=== PATIENT | male | born 1960 | race Two or more races ===

== ENCOUNTER 2023-12-20 17:58 | Emergency (ER) | payer BC, SELFPAY ==
[2023-12-20 17:59] VITALS: BP 179/108
[2023-12-20 18:27] LABS: % Basophils 0.4 % (0-2); % Eosinophils 3.2 % (0-6); % Immature Granulocytes 0.3 % (0-0.5); % Monocytes 6.2 % (1.7-9.3); % Neutrophils 61.9 % (42.2-75.2); Absolute Eosinophils 0.3 10^3/uL (0-0.7); Absolute Lymphocytes 2.7 10^3/uL (1.2-3.4); Absolute Monocytes 0.6 10^3/uL (0.1-0.6); Absolute Neutrophils 5.9 10^3/uL (1.4-6.5); Hematocrit 35.9 % (39.0-52.0); Hemoglobin 12.9 g/dL (13.0-18.0); Mean Corp Hgb Conc. 35.9 g/dL (33.0-37.0); Mean Corpuscular Hgb 30.3 pg (27.0-31.0); Mean Corpuscular Volume 84.3 fL (80.0-94.0); Mean Platelet Volume 9.7 fL (7.4-10.4); Nucleated Red Blood Cells % 0 % (-); Platelet Count 316 10^3/uL (130-400); Red Blood Cell Count 4.26 10^6/uL (4.70-6.10); Red Cell Dist. Width 14.3 % (11.5-14.5); White Blood Cell Count 9.5 10^3/uL (4.8-10.8)
[2023-12-20 18:41] LABS: ALT (SGPT) 22 U/L (0-50); AST (SGOT) 22 U/L (17-59); Albumin 4.1 g/dl (3.5-5.0); Alkaline Phosphatase 100 U/L (38-126); Blood Urea Nitrogen 25 mg/dl (9-20); Calcium 10.2 mg/dl (8.4-10.2); Carbon Dioxide 26 mmol/L (22-30); Chloride 100 mmol/L (98-107); Glucose 135 mg/dl (70-99); Potassium 2.6 mmol/L (3.5-5.1); Sodium 138 mmol/L (135-145); Total Bilirubin 0.5 mg/dl (0.2-1.3); Total Protein 6.8 g/dl (6.3-8.2); eGFR 56.83
[2023-12-20 19:02] VITALS: BP 173/99
--- NOTE | 2023-12-20 19:18 | ED.GENMED ---
History of Present Illness
General
Chief Complaint: Blood Pressure Problem
Source: patient, records and spouse
Time Seen by Provider: 12/20/23 18:59
Travel History
Have you had any contact with someone who has COVID-19?: No
Do you have any symptoms of coronavirus? Fever > 100 degrees, chills, cough, shortness of breath, sore throat, loss of taste or smell, muscle aches, or headache?: No
History of Present Illness
History of Present Illness:
63-year-old male presents to the emergency room complaining of high blood pressure, headache. Patient is particularly concerned because he had a fall with a bleed in September. He was transferred from here to [facility] and then ultimately
went to rehab at [facility]. [facility] [place] he was having issues with hypertension. His medications were adjusted. After discharge home the patient initially was having issues with low blood pressure. Some of his medications were further adjusted.
Patient's checks his blood pressure religiously. Today he is blood pressure is high. Patient does have a headache. He states he does not typically get headaches. No focal weakness numbness or tingling.
Past History
Past History
ED Past Medical History: HTN, Hypercholesterolemia and Psychiatric
ED Past Surgical History: Other
Social History
Tobacco: Non-smoker
Alcohol: None
Drug: None
Personal:
Living: with family
Employment: Employed
Phy Exam
Physical Exam
Physical Exam:
General: Awake, Alert, Oriented X3. No acute distress.
Vitals: unremarkable
Head: Atraumatic
Eyes: Pupils equal, EOMI
Throat: Airway intact, no exudates
Neck: Trachea midline
Lungs: Clear and equal b/l
Heart: Regular rate, no murmurs
Abd: Soft, Nontender, No pulsatile mass
Neuro: Cranial nerves intact, muscle strength equal bilaterally, cerebellar exam normal
Skin: Warm, dry, no rash
Extremities: pulses equal b/l, no edema
Course
Orders/Labs/Results
Orders:
Orders
12/20/23 18:01
Electrocardiogram (*1) Urgent
Reason for Study: Hypertension, Benign
EKG- Treatment ONCE
12/20/23 18:02
CT Head W/o Iv Contrast Urgent
Comment:
Reason For Exam: headache
12/20/23 18:05
Complete Blood Count/With Diff Urgent
Comprehensive Metabolic Panel Urgent
12/20/23 19:30
MRI Brain [MR Brain W/o & With Contrast] Urgent
Comment:
Reason For Exam: eval abnormal finding on CT, headache
OK for patient to be off Cardiac Monitoring for MRI: Yes
Recent pill cam endoscopy?: No
12/20/23 20:32
Oxycodone [Roxicodone] 5 mg PO NOW STA
12/20/23 20:36
Lorazepam [Ativan] 1 mg IV NOW STA
12/20/23 21:36
Potassium Chloride 10% Elixir [KCl Elixir] 80 meq PO NOW STA
Abnormal Lab Results
12/20/23
18:05
RBC 4.26 L 10^6/uL
(4.70-6.10)
Hgb 12.9 L g/dL
(13.0-18.0)
Hct 35.9 L %
(39.0-52.0)
Potassium 2.6 L* mmol/L
(3.5-5.1)
BUN 25 H mg/dl
(9-20)
Creatinine 1.4 H mg/dL
(0.7-1.3)
Glucose 135 H mg/dl
(70-99)
12/20/23 18:05
12/20/23 18:05
Vital Signs
Initial and Last Documented VS:
Initial Vital Signs
Temp Pulse Resp BP Pulse Ox
98.6 F 89 18 179/108 98
12/20/23 17:59 12/20/23 17:59 12/20/23 17:59 12/20/23 17:59 12/20/23 17:59
Last Documented Vital Signs
Temp Pulse Resp BP Pulse Ox
98.6 F 79 18 138/100 94
12/20/23 17:59 12/20/23 22:37 12/20/23 22:37 12/20/23 22:37 12/20/23 22:30
MDM/Problems Addressed
Differential Diagnosis Includes:
Uncontrolled hypertension, recurrence of subdural or subarachnoid hemorrhage, electrode abnormality
MDM/Problems Addressed:
Patient presents with high blood pressure at home. On arrival here his blood pressure is 179 and during his stay here has improved to [address] was obtained given his headache and history of bleed. This shows findings which are likely
related to his old bleed but radiology recommended an MRI to exclude any new bleeding. MRI was performed and it is in fact negative for any acute abnormality. Patient was found to have hypokalemia. He has been taking Lokelma. Apparently during
his hospitalization for his recent bleed he did have hyperkalemia. Patient instructed to stop taking Lokelma. 80 mEq of KCl elixir given here. I sent a prescription for 20 mill equivalent replacement a day as well as instructing the patient to
normalize his diet which has been a low potassium diet recently. Recheck potassium on Saturday. Patient stable for discharge home however as he has normal intervals on his EKG.
*Radiology
Radiology exam reviewed: radiology read reviewed
*Pulse Oximetry
Patient hypoxic: no
*EKG
Interpreted by ED Provider?: Yes
Interpretation: normal
Heart Rate: 84
Rate: normal
Rhythm: sinus
[place]: normal axis
Interval: normal interval
QRS Pattern: normal QRS
Ischemia: no ischemia
*Keyliner Interpretation
Rate: normal
Interpretation: normal
Rhythm: sinus
*Critical Care Note
Total Time (30-74mins, 75-104mins- exclusive of procedures): Not Applicable
ED Attending Note
-
Portions of this chart may have been created with voice recognition software.� Occasional wrong word or��sound alike� substitutions may have occurred due to the inherent limitations of voice recognition software.
Discharge Plan
Departure
Patient Disposition: Home (Routine Discharge)
Date of Disposition: 12/20/23
Time of Disposition: 22:55
Patient with high blood pressure during this ER visit?: Yes
Condition: Good
Discharge Problem:
Hypertension, Hypokalemia
Instructions: Hypokalemia, High Blood Pressure (DC)
Prescriptions:
New
potassium chloride 20 mEq tablet,ER particles/crystals
20 meq PO ONCE Qty: 14 0RF
No Action
carvedilol 6.25 mg tablet
6.25 mg PO BID
chlorthalidone 25 mg tablet
25 mg PO DAILY
omeprazole 40 mg capsule,delayed release(DR/EC)
40 mg PO DAILY
amantadine HCl 100 mg capsule
100 mg PO BID@0800,1400
montelukast 10 mg tablet
10 mg PO DAILY
gabapentin 100 mg capsule
100 mg PO HS
albuterol sulfate 90 mcg/actuation HFA aerosol inhaler
2 puff INHALATION R Q6HPRN PRN (Reason: sob/wheezing)
oxycodone 5 mg tablet
5 mg PO Q6HPRN PRN (Reason: moderate to severe pain)
Patient Comments:
12/20/2023: last filled 11/29/23, 60 tabs for 15 days from [facility]
rosuvastatin 10 mg tablet
10 mg PO QPM
metoprolol tartrate 25 mg tablet
25 mg PO Q12
amlodipine-benazepril 10-40 mg capsule
1 cap PO DAILY PRN (Reason: BP)
silodosin 8 mg capsule
8 mg PO HS
Lokelma 10 gram powder in packet
10 g PO QPM
Referrals:
Mehul Juarez MD [Family Provider] -
Activity Restrictions/Additional Instructions:
Your blood pressure has improved here without any new medications. Keep taking the blood pressure medications that your doctor has prescribed. STOP taking Lokelma (sodium zirconium). I have prescribed potassium replacement for the next few days.
Please get the potassium rechecked next week (Saturday).
Interventions
Interventions:
*Risk Screen - Suicide Last Done: 12/20/23 17:59
*General Assessment Last Done: 12/20/23 17:59
*Neglect/Abuse Screening Last Done: 12/20/23 17:59
*ED COVID-19 Vaccine History Last Done: 12/20/23 17:59
ED- Cardiac Assessment Last Done: 12/20/23 19:22
ED- Neurological Assessment Last Done: 12/20/23 19:22
ED- Pulmonary Assessment Last Done: 12/20/23 19:22
Discharge Date and Time
Print Language: AFGHAN
[2023-12-20 20:00] VITALS: BP 151/82
[2023-12-20] MEDS: ROXICODONE 5 MG PO (20:34)
[2023-12-20] MEDS: ATIVAN 1 MG IV (20:38)
[2023-12-20] MEDS: KCL ELIXIR 80 MEQ PO (22:32)
[2023-12-20 22:37] VITALS: BP 138/100
== END 2023-12-20 23:16 | disposition home or self-care (01) ==
LOC: EMR 17:58
PROVIDERS: Student in an Organized Health Care Education/Training Program; EMERGENCY PHYSICIAN Emergency Medicine; FAMILY PHYSICIAN Family Medicine
DX: E87.6 Hypokalemia (principal); I10 Essential (primary) hypertension
CPT/HCPCS: 99285; 96374; 70450; 70553; 80053; 85025; 93005; A9575

== ENCOUNTER 2024-05-01 05:51 | Outpatient (RCR) | payer BC, SELFPAY | END 2024-05-01 23:59 | disposition home or self-care (01) | LOC: RPT 05:51 | PROVIDERS: ATTENDING PHYSICIAN Physical Medicine & Rehabilitation; FAMILY PHYSICIAN Family Medicine | DX: S06.36 Traumatic hemorrhage of cerebrum, unspecified (principal); Z73.6 Limitation of activities due to disability | CPT/HCPCS: 97163; 97167; 97535 ==

== ENCOUNTER 2024-05-29 13:56 | Outpatient (RCR) | payer BC, SELFPAY | END 2024-05-29 23:59 | disposition home or self-care (01) | LOC: RPT 13:56 | PROVIDERS: ATTENDING PHYSICIAN Physical Medicine & Rehabilitation; FAMILY PHYSICIAN Family Medicine | DX: I61.9 Nontraumatic intracerebral hemorrhage, unspecified (principal); I63.9 Cerebral infarction, unspecified; Z73.6 Limitation of activities due to disability | CPT/HCPCS: 97010; 97110; 97112; 97116; 97530; 97535 ==

== ENCOUNTER 2024-07-02 15:57 | Outpatient (RCR) | payer BC, SELFPAY | END 2024-07-02 23:59 | disposition home or self-care (01) | LOC: RPT 15:57 | PROVIDERS: ATTENDING PHYSICIAN Physical Medicine & Rehabilitation; FAMILY PHYSICIAN Family Medicine | DX: I61.9 Nontraumatic intracerebral hemorrhage, unspecified (principal); S06.36 Traumatic hemorrhage of cerebrum, unspecified (principal); I63.9 Cerebral infarction, unspecified; Z73.6 Limitation of activities due to disability | CPT/HCPCS: 97010; 97110; 97112; 97116; 97140; 97530; 97535 ==

== ENCOUNTER 2024-07-31 14:11 | Outpatient (RCR) | payer BC, SELFPAY | END 2024-07-31 23:59 | disposition home or self-care (01) | LOC: RPT 14:11 | PROVIDERS: ATTENDING PHYSICIAN Physical Medicine & Rehabilitation; FAMILY PHYSICIAN Family Medicine | DX: I61.9 Nontraumatic intracerebral hemorrhage, unspecified (principal); R26.89 Other abnormalities of gait and mobility (principal); I63.9 Cerebral infarction, unspecified; Z73.6 Limitation of activities due to disability | CPT/HCPCS: 97010; 97110; 97112; 97116; 97140; 97530; 97535 ==

== ENCOUNTER 2024-09-01 14:34 | Outpatient (RCR) | payer BC, SELFPAY | END 2024-09-01 23:59 | disposition home or self-care (01) | LOC: RPT 14:34 | PROVIDERS: ATTENDING PHYSICIAN Physical Medicine & Rehabilitation; FAMILY PHYSICIAN Family Medicine | DX: R26.89 Other abnormalities of gait and mobility (principal); I63.9 Cerebral infarction, unspecified; I61.9 Nontraumatic intracerebral hemorrhage, unspecified; Z73.6 Limitation of activities due to disability | CPT/HCPCS: 97010; 97110; 97112; 97116; 97140; 97530; 97535 ==

== ENCOUNTER 2024-10-02 14:30 | Outpatient (RCR) | payer OTHER, SELFPAY | END 2024-10-02 23:59 | disposition home or self-care (01) | LOC: RPT 14:30 | PROVIDERS: ATTENDING PHYSICIAN Physical Medicine & Rehabilitation; FAMILY PHYSICIAN Family Medicine | DX: I61.9 Nontraumatic intracerebral hemorrhage, unspecified (principal); I69.20 Unspecified sequelae of other nontraumatic intracranial hemorrhage (principal); R26.89 Other abnormalities of gait and mobility; I63.9 Cerebral infarction, unspecified; Z73.6 Limitation of activities due to disability | CPT/HCPCS: 97010; 97110; 97112; 97116; 97140; 97161; 97167; 97530; 97535 ==

== ENCOUNTER 2024-10-13 10:38 | Outpatient (RCR) | payer OTHER, SELFPAY | END 2024-10-13 23:59 | disposition home or self-care (01) | LOC: RPT 10:38 | PROVIDERS: ATTENDING PHYSICIAN Physical Medicine & Rehabilitation; FAMILY PHYSICIAN Family Medicine | DX: R26.89 Other abnormalities of gait and mobility (principal); I61.9 Nontraumatic intracerebral hemorrhage, unspecified (principal); I63.9 Cerebral infarction, unspecified; Z73.6 Limitation of activities due to disability | CPT/HCPCS: 97530 ==

== ENCOUNTER 2024-10-13 14:53 | Emergency (ER) | payer OTHER, SELFPAY ==
[2024-10-13 14:54] VITALS: BP 121/71
[2024-10-13 16:26] VITALS: BMI 40.9
--- NOTE | 2024-10-13 17:31 | ED.GENMED ---
History of Present Illness
General
Chief Complaint: Musculo-Skeletal Complaint
Source: patient
Exam Limitations: none
Time Seen by Provider: 10/13/24 16:20
Nursing documentation reviewed up to this point in time: agreed with
History of Present Illness
History of Present Illness:
64-year-old male past medical history of recent brain injury, hypertension hyperlipidemia presenting to the emergency department today with concerns of left-sided shoulder discomfort of the past week after he had a ground-level fall when he got
tripped up. Denies additional injuries but has had ongoing shoulder discomfort. Denies shortness of breath or chest pain
Past History
Past History
ED Past Medical History: HTN, Hypercholesterolemia and Psychiatric
ED Past Surgical History: Other
Social History
Tobacco: Non-smoker
Alcohol: None
Drug: None
Personal:
Living: with family
Employment: Employed
Review of Systems
Review of Systems
Allergies reviewed?: Yes
All Other Systems: ROS reviewed and negative except as documented in HPI and ROS
Phy Exam
Physical Exam
Physical Exam:
GENERAL: Alert , in no apparent distress
EYE: pupils equal and reactive
NECK: Supple, no significant adenopathy.
ENT: o/p clr, mmm.
CARDIAC: Regular rate and rhythm .
LUNGS: Clear breath sounds bilaterally, no acute respiratory distress, no wheezes/rales/rhonchi
ABDOMEN: Soft, without focal tenderness, no r/g, no cvat
NEUROLOGICAL: Alert and oriented, no focal neuro deficits
SKIN: Warm and dry, skin intact.
MUSCULOSKELETAL: Discomfort of the left lateral shoulder increases, with any movement of the shoulder no tenderness about the humerus scapula or clavicle, no edema, well perfused.
PSYCH: Normal and appropriate interaction.
Course
Orders/Labs/Results
Orders:
Orders
10/13/24 14:58
CR Shoulder, Trauma - Left Urgent
Comment:
Reason For Exam: fall 1 week ago, pain
10/13/24 17:31
Sling Left-Treatment ONCE
Vital Signs
Initial and Last Documented VS:
Initial Vital Signs
Temp Pulse Resp BP Pulse Ox
98.2 F 82 16 121/71 98
10/13/24 14:54 10/13/24 14:54 10/13/24 14:54 10/13/24 14:54 10/13/24 14:54
Last Documented Vital Signs
Temp Pulse Resp BP Pulse Ox
98.2 F 82 16 121/71 98
10/13/24 14:54 10/13/24 14:54 10/13/24 14:54 10/13/24 14:54 10/13/24 14:54
MDM/Problems Addressed
MDM/Problems Addressed:
64-year-old male presenting to the emergency department today with concerns of left-sided lateral shoulder discomfort after a fall 1 week ago. Here x-ray with possible small minimally displaced fracture to the left lateral shoulder. This likely
does explain patient's symptoms. We did discussion of potential CT scan for further clarification but this would be unlikely to result in any change of management considering this plan for treatment of likely fracture at this point and outpatient
follow-up. Patient was placed in a sling and otherwise will follow-up closely with orthopedics. Return precautions given.
*Critical Care Note
Total Time (30-74mins, 75-104mins- exclusive of procedures): Not Applicable
ED Attending Note
-
Portions of this chart may have been created with voice recognition software.� Occasional wrong word or��sound alike� substitutions may have occurred due to the inherent limitations of voice recognition software.
Discharge Plan
Departure
Patient Disposition: Home (Routine Discharge)
Date of Disposition: 10/13/24
Time of Disposition: 17:34
Patient with high blood pressure during this ER visit?: No
Condition: Good
Covid-19: Not Applicable
Discharge Problem:
Fracture of proximal humerus
Instructions: Shoulder or upper arm fracture
Prescriptions:
New
oxycodone-acetaminophen [Percocet] 5-325 mg tablet
1 tab PO Q8H PRN (Reason: Pain) Qty: 7 0RF
No Action
carvedilol 6.25 mg tablet
6.25 mg PO BID
chlorthalidone 25 mg tablet
25 mg PO DAILY
omeprazole 40 mg capsule,delayed release(DR/EC)
40 mg PO DAILY
amantadine HCl 100 mg capsule
100 mg PO BID@0800,1400
montelukast 10 mg tablet
10 mg PO DAILY
gabapentin 100 mg capsule
100 mg PO HS
albuterol sulfate 90 mcg/actuation HFA aerosol inhaler
2 puff INHALATION R Q6HPRN PRN (Reason: sob/wheezing)
oxycodone 5 mg tablet
5 mg PO Q6HPRN PRN (Reason: moderate to severe pain)
Patient Comments:
12/20/2023: last filled 11/29/23, 60 tabs for 15 days from [facility]
rosuvastatin 10 mg tablet
10 mg PO QPM
metoprolol tartrate 25 mg tablet
25 mg PO Q12
amlodipine-benazepril 10-40 mg capsule
1 cap PO DAILY PRN (Reason: BP)
silodosin 8 mg capsule
8 mg PO HS
Lokelma 10 gram powder in packet
10 g PO QPM
potassium chloride 20 mEq tablet,ER particles/crystals
20 meq PO ONCE Qty: 14 0RF
Referrals:
Mehul Juarez MD [Family Provider] -
Kuldeep Trent MD [Active] - Follow up in 5-7 days
Activity Restrictions/Additional Instructions:
You came to the emergency department today with concerns of shoulder discomfort. You are found to have a small fracture to the proximal humerus. Please use the sling and follow-up close with PT and orthopedics for further management. Return for
any worsening, new or concerning symptoms.
Interventions
Interventions:
*Risk Screen - Suicide Last Done: 10/13/24 14:54
*General Assessment Last Done: 10/13/24 14:54
*Neglect/Abuse Screening Last Done: 10/13/24 16:26
ED- Fall Risk Assessment Last Done: 10/13/24 16:19
*ED COVID-19 Vaccine History Last Done: 10/13/24 14:54
ED-Musculoskeletal Assessment Last Done: 10/13/24 16:27
Discharge Date and Time
Print Language: SOUTH AFR[place]
== END 2024-10-13 17:56 | disposition home or self-care (01) ==
LOC: EMR 14:53
PROVIDERS: EMERGENCY PHYSICIAN Student in an Organized Health Care Education/Training Program; FAMILY PHYSICIAN Family Medicine
DX: S42.202A Unspecified fracture of upper end of left humerus, initial encounter for closed fracture (principal); W01.0XXA Fall on same level from slipping, tripping and stumbling without subsequent striking against object, initial encounter; E78.00 Pure hypercholesterolemia, unspecified; I10 Essential (primary) hypertension
CPT/HCPCS: 99283; 73030

== ENCOUNTER 2024-11-27 06:16 | Outpatient (RCR) | payer OTHER, SELFPAY | END 2024-11-27 23:59 | disposition home or self-care (01) | LOC: RPT 06:16 | PROVIDERS: ATTENDING PHYSICIAN Family Medicine | DX: S42.9 Fracture of shoulder girdle, part unspecified (principal); M25.512 Pain in left shoulder; R26.81 Unsteadiness on feet | CPT/HCPCS: 97162; 97167; 97530; 97535 ==

== ENCOUNTER 2024-12-25 14:36 | Outpatient (RCR) | payer OTHER, SELFPAY | END 2024-12-25 23:59 | disposition home or self-care (01) | LOC: RPT 14:36 | PROVIDERS: ATTENDING PHYSICIAN Family Medicine | DX: S42.9 Fracture of shoulder girdle, part unspecified (principal); M25.512 Pain in left shoulder; R26.81 Unsteadiness on feet; R26.89 Other abnormalities of gait and mobility; Z73.6 Limitation of activities due to disability | CPT/HCPCS: 97010; 97110; 97112; 97116; 97140; 97530; 97535 ==

== ENCOUNTER 2025-01-29 14:22 | Outpatient (RCR) | payer OTHER, SELFPAY | END 2025-01-29 23:59 | disposition home or self-care (01) | LOC: RPT 14:22 | PROVIDERS: ATTENDING PHYSICIAN Family Medicine | DX: S42.90XD Fracture of unspecified shoulder girdle, part unspecified, subsequent encounter for fracture with routine healing (principal); S42.9 Fracture of shoulder girdle, part unspecified (principal); M25.512 Pain in left shoulder; R26.89 Other abnormalities of gait and mobility; R26.81 Unsteadiness on feet; Z73.6 Limitation of activities due to disability; M62.81 Muscle weakness (generalized); W00.0XXD Fall on same level due to ice and snow, subsequent encounter | CPT/HCPCS: 97010; 97110; 97112; 97116; 97140; 97530 ==

== ENCOUNTER 2025-02-02 14:37 | Outpatient (RCR) | payer OTHER, SELFPAY | END 2025-02-02 23:59 | disposition home or self-care (01) | LOC: RPT 14:37 | PROVIDERS: ATTENDING PHYSICIAN Family Medicine | DX: S42.90XD Fracture of unspecified shoulder girdle, part unspecified, subsequent encounter for fracture with routine healing (principal); M25.512 Pain in left shoulder; R26.89 Other abnormalities of gait and mobility; R26.81 Unsteadiness on feet; Z73.6 Limitation of activities due to disability; M62.81 Muscle weakness (generalized); W00.0XXD Fall on same level due to ice and snow, subsequent encounter; S42.9 Fracture of shoulder girdle, part unspecified | CPT/HCPCS: 97110; 97112; 97116; 97535 ==